=== PATIENT | female | born 1940 | race Caucasian/White ===

== ENCOUNTER → 2016-08-24 | Outpatient (CLI) | payer MEDICARE, BC ==
[~2016-08-24] MED LIST: ACTEMRA; ACTEMRA80 MG/4 ML IV; AMLODIPINE BES2.5 MG PO; BENTYL20 MG PO; CIPRO PO; DEXAMETHASONE4 MG PO; FOLIC ACID PO; HCTZ PO; HYDROCODON-ACE1 EAC9 PO; LEVOTHYROXINE100 MC1 PO; LISINOPRIL-HCTZ1 T15 PO; LISINOPRIL-HCTZ1 T21 PO; LOMOTIL WHITE2.5 M1 PO; LOTREL 5/10 MG1 CAP PO; MELOXICAM15 MG PO; METHOTREXATE2.5 MG PO; MOBIC15 MG PO; NABUMETONE PO; NORCO1 TAB 10/3 PO; ONDANSETRON ODT4 MG PO; PYRIDIUM PO; REMICADE; ZESTORETIC 20-1 EAC2
--- NOTE | ~2016-08-24 | CT57 ---
[facility] A Service of [facility] RADIOLOGY TEXT RESULTS PATIENT: KADIE CALLAWAY LOCATION: [facility] : 42 UNIT #: [id number] AGE: [address]: Socrates Menard MD SEX: F ORDER DR: [id number] [facility]. [place], [place] [address] [id number] O MR#: [id number] #: [id number] NAME: KADIE CALLAWAY. : 1940 SEX: F STUDY DATE/TIME: 08/24/2016 11:58 UNIT: [facility] ROOM: STUDY DESCRIPTION: CT Chest Wo Cont Attending Physician: Socrates Menard M.D. Referring Physician: Socrates Menard M.D. Ordering Physician: Socrates Menard M.D. Primary Care Physician: Darell Villar M.D. MEDICAL IMAGING REPORT This report is preliminary unless electronic signature is present EXAM CT chest. INDICATION Pulmonary nodule. Restaging. COPD. TECHNIQUE CT of the chest without contrast. Coronal and sagittal reconstructions were obtained. This CT exam was performed with one or more of the following radiation dose reduction techniques: automatic exposure control, adjustment of mA and/or kV according to patient size, and iterative reconstruction. COMPARISON CT chest dated 02/09/2016 and 12/02/2011. FINDINGS Several small pulmonary nodules are unchanged from the prior study of 02/09/2016. A 0.5 cm pulmonary nodule in the left lung base previously measured 0.6 cm. There is a 0.8 cm nodule in the lingula, unchanged. A dominant nodule in the right upper lobe measures 1.1 cm x 1.0 cm, unchanged. No new or enlarging nodules are identified. There is background emphysema. Central airways are patent. No enlarged mediastinal or hilar lymph nodes. No pericardial or pleural effusion. There are a few gallstones in the gallbladder. No acute osseous abnormalities. IMPRESSION [facility] A Service of [facility] RADIOLOGY TEXT RESULTS PATIENT: KADIE CALLAWAY LOCATION: [facility] : 42 UNIT #: [id number] AGE: [address]: Socrates Menard MD SEX: F ORDER DR: 1. Multiple noncalcified pulmonary nodules are unchanged from prior studies. No new or enlarging pulmonary nodules. 2. Multiple calcified granulomas in the lungs indicating prior granulomatous exposure. 3. Mild emphysema. Dictated by... Sree Scott M.D. THIS IS AN ELECTRONICALLY VERIFIED REPORT Sree Scott M.D. at 08/25/2016 9:02 AM CHEPE/jagruti TD: 08/24/2016 23:59 JOB #: [id number] MEDICAL IMAGING REPORT Page 1 of 1 COPY
== END | disposition home or self-care (01) ==
LOC: CCAT 11:09
DX: R91.1 Solitary pulmonary nodule (principal); R91.8 Other nonspecific abnormal finding of lung field; J43.9 Emphysema, unspecified; J84.10 Pulmonary fibrosis, unspecified
CPT/HCPCS: 71250

== ENCOUNTER 2016-09-29 16:04 | Inpatient (IN) | payer MEDICARE, BC ==
--- NOTE | ~2016-09-29 | DS ---
Unit #: [id number] #: [id number] Patient: KADIE MONTOYA [id number] [address] [address] [id number] I MR#: [id number] NAME: KADIE MONTOYA. ROOM: [facility] Age: 76 Sex: F Admission Date: 09/29/2016 : 1940 Discharge Date: 10/01/2016 Attending Physician: Kaylyn Reyez M.D. Primary Care Physician: Darell Villar M.D. DISCHARGE SUMMARY PRINCIPAL DIAGNOSES 1. Acute on likely chronic cholecystitis with associated cholelithiasis status post laparoscopic cholecystectomy. 2. Acute hypoxic respiratory failure secondary to atelectasis, now resolved. 3. Hypotension, likely medication induced, now off of antihypertensives. 4. Severe chronic obstructive pulmonary disease. 5. Rheumatoid arthritis. 6. Stable lung nodules. 7. Moderate protein malnutrition. 8. Hypothyroidism. 9. Acute kidney injury. 10. Tobaccoism. 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 PROCEDURES 1. Laparoscopic cholecystectomy on October 01, 2016. This occurred without complication. 2. Right upper quadrant ultrasound, on September 30, 2016, with multiple large gallstones within a nondistended, thickly walled gallbladder. 3. Chest x-ray, September 29, 2016, with lower lung volumes and vascular crowding, likely consistent with atelectasis. A well-circumscribed nodule in the right upper lobe that is stable since May 2016. CLINICAL HISTORY AND HOSPITAL COURSE Ms. Montoya is a 76-year-old female who presents to the emergency department with complaints of epigastric and right upper quadrant pain. Please refer to H and P for further details. Pain was worse after eating. In the emergency department, lab work was unremarkable. However, the patient developed some mild hypotension in addition to some hypoxia and she was subsequently admitted. In regards to patient's epigastric pain, right upper quadrant was done revealing cholelithiasis and a thickened gallbladder wall. LSA was consulted and the patient underwent laparoscopic cholecystectomy earlier today. She is still having a mild amount of pain and am I going to monitor for the next few hours to ensure pain is adequately controlled and she has no recurrent hypoxia. In regards to patient's hypotension, her home medications were healed. She was placed on IV fluids and hypotension resolved. Today, she has stable blood pressure off of her antihypertensive medications with Unit #: [id number] #: [id number] Patient: KADIE MONTOYA systolics running in the 120s to 130s. I am going to hold all of her antihypertensives upon discharge and this can be followed up in one to two weeks with her primary care provider, Dr. Villar. They can be reinitiated if needed. In regards to the patient's hypoxia, this resolved simply with deep breathing. I suspect this is secondary to atelectasis due to her gallbladder inflammation. There were concerns about questionable pneumonia but the patient did not have any cough. She did not have any fever. She had minimal leukocytosis. Again, I am going to hold antibiotics at this time and encouraged incentive spirometry. The patient's other chronic condition remained stable. She will be discharged home later today assuming she can tolerate a diet. DISCHARGE CONDITION Stable. DISCHARGE STATUS Discharged to home. DISCHARGE MEDICATIONS 1. [place] 7.5/325 mg one to two tablets p.o. q.6 hours p.r.n. for pain. Number given 30. 2. Levothyroxine 100 mcg p.o. daily. 3. Actemra 80 mg IV monthly. Please note I am holding Zestoretic, Norvasc and Mobic due to her hypotension and mild elevated creatinine. On date of discharge, creatinine is 1.5. DISCHARGE INSTRUCTIONS 1. The patient was instructed to follow a regular diet as she can tolerate. 2. She can increase her activity as tolerated. 3. To refrain from any further tobacco use. FOLLOWUP 1. The patient will follow up with Dr. Marcos in approximately two weeks. 2. The patient should follow up with Dr. Villar in one week. Remain off of antihypertensives until then and they can be re-initiated as an outpatient if needed. Time spent on discharge-34 minutes. Dictated by... Kaylyn Reyez M.D. MELVINA/chel TD: 10/03/2016 14:11 JOB #: [id number] Unit #: [id number] #: [id number] Patient: KADIE MONTOYA DISCHARGE SUMMARY Page 1 of 1 X Kaylyn Reyez MD X DISCHARGE SUMMARY
--- NOTE | ~2016-09-29 | HP ---
Unit #: [id number] #: [id number] Patient: KADIE CALLAWAY [id number] [address] [place], [place] [address] [id number] I MR#: [id number] NAME: KADIE CALLAWAY. ROOM: 82656 Age: 76 Sex: F Admission Date: 09/29/2016 : 1940 Attending Physician: Jacki Trivedi M.D. Primary Care Physician: Darell Villar M.D. HISTORY AND PHYSICAL CHIEF COMPLAINT Epigastric and chest pain. HISTORY This pleasant 77-year-old female with hypertension, hypothyroidism, rheumatoid arthritis, is admitted for chest and abdominal pain. Patient states that recently she has noted a little bit of diarrhea. However, today she developed lower chest pain/epigastric pain then nausea, vomiting, lightheadedness, feeling hot and cold chills. She denies shortness of breath, cough, does admit to some recent dysuria. She presents to this emergency department where she is afebrile. Her O2 sats dropped to about 86% with ambulation. Although she has no CVA tenderness, her urine shows significant pyuria. CT scan of the abdomen and pelvis was performed showing gallstones, and possible pneumonia versus congestive heart failure of both the lower lungs, noncalcified nodules which were unchanged. In the ER patient was bolused with a liter of saline, given 4 of Zofran, morphine, Levaquin and Phenergan. She is a bit tender in the epigastric region. PAST MEDICAL HISTORY 1. Hypertension. 2. Rheumatoid arthritis. 3. Hypothyroidism, status post thyroidectomy for benign lung nodules. 4. Lung nodules, followed by Dr. Menard. 5. COPD. 6. Total abdominal hysterectomy. 7. Bilateral cataract extraction with lens placement. ALLERGIES Penicillin and sulfa. HOME MEDICATIONS 1. Synthroid 0.1 mg daily. 2. Mobic 15 mg daily. 3. Zestoretic 20/25 daily. 4. Norvasc 2.5 mg daily. 5. Actemra 80 mg IV monthly. FAMILY HISTORY CAD. SOCIAL HISTORY The patient lives with her . She stopped smoking 07/2016, was Unit #: [id number] #: [id number] Patient: KADIE CALLAWAY smoking one pack per day or tobacco until that time, does not drink alcohol. REVIEW OF SYSTEMS Noted for upper abdominal/lower chest pain, lightheadedness, feeling feverish, cold chills, dysuria, hypertension, DJD, hypothyroidism, rheumatoid arthritis, abovementioned surgeries. All other systems were reviewed and are otherwise negative. PHYSICAL EXAMINATION GENERAL: Pleasant 76-year-old female currently in no acute distress. VITAL SIGNS: Patient is afebrile, pulse 76, respirations 20, initial blood pressure 99/33, O2 saturation 93% on 2 L or oxygen. HEENT: Pupils are irregular and unequal secondary to previous surgeries. Extraocular muscles are intact. Pharynx is benign. NECK: Supple, without adenopathy or thyromegaly. CHEST: Reveals a few crackles at the right base. BACK: Without CVA tenderness. CARDIAC: Normal S1 and S2, very soft systolic murmur. ABDOMEN: Bowel sounds are present. Mild epigastric tenderness. No hepatosplenomegaly. No masses. EXTREMITIES: Without cyanosis, clubbing or edema. Pedal pulses are somewhat diminished. NEUROLOGIC EXAM: Patient is awake, alert, oriented. Cranial nerves are intact. Equal strength throughout. DIAGNOSTIC STUDIES ADMISSION LABORATORY: Hematocrit is 42.4, normal white count and platelet count. SMA-12: Glucose 181. Normal lipase, amylase Urinalysis 3+ leukocyte esterase, 10 to 25 red cells, 50 to 100 white cells, 3+ bacteria, moderate squamous cells. IMAGING: CT scan of the abdomen and pelvis: Development of diffuse interstitial thickening of the lung bases. May be due to interstitial edema or an atypical infection. Noncalcified pulmonary nodules in the left lower lobe, unchanged from 12/2015. Gallstones. Diverticular disease. Renal atrophy. ASSESSMENT 1. Epigastric and chest pain. Will check an EKG. Obviously treat for possible pneumonia although patient has no symptoms as such, and will check a gallbladder ultrasound. 2. Questionable pneumonia on chest x-ray. Patient denies cough. 3. Gallstones. 4. Urinary tract infection. 5. Rheumatoid arthritis. 6. Chronic obstructive pulmonary disease and nodules followed by Dr. Feliberto Menard. 7. Hypertension. 8. Hypothyroidism, status post thyroidectomy. PLANS 1. Doxycycline and cefotetan pending a formal chest x-ray. Obtain gallbladder and urine culture. Patient was given a dose of Levaquin in the ER. 2. Obtain formal chest x-ray. 3. Obtain EKG, STAT cardiac enzymes. 4. SCDs for DVT prophylaxis. Unit #: [id number] #: [id number] Patient: KADIE CALLAWAY 5. IV fluids and supportive treatment. Dictated by Jacki Trivedi M.D. AML/cf TD: 09/29/2016 23:22 JOB #: [id number] HISTORY AND PHYSICAL Page 1 of 1 X Jacki Trivedi MD X HISTORY AND PHYSICAL
--- NOTE | ~2016-09-29 | CO ---
Unit #: [id number] #: [id number] Patient: KADIE MONTOYA [id number] [address] [address] [id number] I MR#: [id number] NAME: KADIE MONTOYA. ROOM: 312 Age: 76 Sex: F Admission Date: 09/29/2016 : 1940 Attending Physician: Kaylyn Reyez M.D. Primary Care Physician: Darell Villar M.D. Consultation Date: 09/30/2016 CONSULTATION REPORT HISTORY AND EXAM Ms. Montoya is a 76-year-old female with a known history of asymptomatic cholelithiasis who developed right upper quadrant and epigastric abdominal pain with associated pain in the chest. She came to the hospital and was admitted and on evaluation appears to have acute on chronic cholecystitis with cholelithiasis. Periductal systems is normal and her liver chemistries are normal. She denies any fever, chills, hematemesis, hematochezia, melena. PAST MEDICAL HISTORY 1. Hypertension. 2. Rheumatoid arthritis. 3. COPD. 4. She is status post thyroidectomy in July of this year for benign nodules. 5. She has had benign lung nodules for some time. 6. Bilateral cataract extraction. 7. Total abdominal hysterectomy. ALLERGIES Penicillin and sulfa. MEDICATIONS Reviewed. FAMILY HISTORY Unremarkable. SOCIAL HISTORY Lives at home with her . Has good family support. She stopped smoking in July of 2016. Prior to that, she was a pack per day smoker. Denies use of alcohol. REVIEW OF SYSTEMS As above. PHYSICAL EXAMINATION VITAL SIGNS: On current examination, temperature is 98, pulse 74 and regular, respirations 20, blood pressure 113/48 GENERAL: Awake, alert and oriented. HEENT: No scleral icterus. CARDIAC EXAM: Regular rhythm. LUNGS: Clear. ABDOMEN: She guards in the right upper quadrant. It is localized. There Unit #: [id number] #: [id number] Patient: KADIE MONTOYA is no rebound tenderness or mass. EXTREMITIES: No edema. NEUROLOGICAL: Grossly intact. DIAGNOSTIC STUDIES LABORATORY: Comprehensive metabolic panel is normal. Urinalysis - negative for infection. Hemoglobin 12.8, white count 14,900, 191,000 platelets. CARDIOVASCULAR: EKG - normal sinus rhythm. IMAGING: CT chest - atelectasis versus infiltrate. Ultrasound of the gallbladder - multiple large stones with a thickened gallbladder wall. Normal biliary ductal system. ASSESSMENT AND PLAN 76-year-old female with acute on chronic cholecystitis and cholelithiasis. We discussed laparoscopic cholecystectomy with possibility of conversion to open procedure. Risks, benefits, complications were gone over. Questions were answered. The patient understands and agrees to proceed. Dictated by... Naz May/brett TD: 10/01/2016 07:04 JOB #: [id number] CONSULTATION REPORT Page 1 of 1 X Arsen Raza MD X CONSULTATION REPORT
--- NOTE | ~2016-09-29 | OR ---
Unit #: [id number] #: [id number] Patient: KADIE CALLAWAY [id number] [id number] Alivia MR#: [id number] NAME: KADIE CALLAWAY. ROOM: 312 Date of Procedure: 10/01/2016 Admission Date: 09/29/2016 Surgeon: Gucci Marcos III, M.D. : 1940 Attending Physician: Kaylyn Reyez M.D. Primary Care Physician: Darell Villar M.D. OPERATIVE REPORT PREOPERATIVE DIAGNOSIS Symptomatic cholelithiasis. POSTOPERATIVE DIAGNOSIS Symptomatic cholelithiasis. PROCEDURE PERFORMED Laparoscopic cholecystectomy. ANESTHESIA General. SPECIMENS Gallbladder to pathology. COMPLICATIONS None apparent. ESTIMATED BLOOD LOSS Minimal. INDICATIONS FOR PROCEDURE This is a 76-year-old lady, who has a history of gallstones and has been having some postprandial right upper quadrant pain with nausea. She is here today for laparoscopic cholecystectomy. DESCRIPTION OF PROCEDURE After consent was obtained, the patient was brought to the operating room and placed in the supine position. General anesthetic was administered. Her abdomen was prepped and draped in standard surgical fashion. I made a 5-mm incision in the right upper quadrant and used an Optiview to enter into the peritoneal cavity without any difficulty. CO2 pneumoperitoneum was then established. Next, a second 5-mm port was placed in the supraumbilical region and an 11-mm port was placed in the midepigastric region and a third 5-mm port placed in the right lateral subcostal region. I began by retracting the gallbladder superiorly and laterally. It did appear to be distended. There were no unusual adhesions to the gallbladder itself. I was able to dissect out the cystic duct and cystic artery and after these were carefully identified, I placed 2 clips proximally and one clip distally along both structures and then they were divided. The gallbladder was then taken off the liver bed using the hook cautery. The gallbladder was then extracted through the epigastric port Unit #: [id number] #: [id number] Patient: KADIE CALLAWAY site with some minimal dilatation of the fascia. I had excellent hemostasis and all needle, sponge, and instrument counts were correct x2. I removed all the trocars and released the pneumoperitoneum. I injected all the port sites with 0.25% plain Marcaine. I reapproximated the fascia at the epigastric port site with a neoClose device. The skin edges were then reapproximated with interrupted 4-0 Vicryl subcuticular suture. Steri-Strips were then applied. The patient tolerated the procedure without any problems and returned to the recovery room in stable condition. Dictated by... Gucci Marcos III, M.D. VCL/albert TD: 10/02/2016 01:50 JOB #: [id number] OPERATIVE REPORT Page 1 of 1 X Gucci Marcos III, MD X PROCEDURE OPERATIVE NOTE
--- NOTE | ~2016-09-29 | CT4 ---
[facility] A Service of [facility] RADIOLOGY TEXT RESULTS PATIENT: KADIE CALLAWAY LOCATION: [facility] : 42 UNIT #: [id number] AGE: [address]: Amado Barger MD SEX: F ORDER DR: [id number] [facility] [address] [place], [place] [address] [id number] MR#: [id number] Acc #: [id number] NAME: KADIE CALLAWAY. : 1940 SEX: F STUDY DATE/TIME: 09/29/2016 20:36 UNIT: [facility] ROOM: STUDY DESCRIPTION: CT Abd and Pelv Wo Cont Attending Physician: Rickey Barger M.D. Ordering Physician: Rickey Bargre M.D. Primary Care Physician: Darell Villar M.D. MEDICAL IMAGING REPORT This report is preliminary unless electronic signature is present EXAM CT of the abdomen and pelvis. INDICATIONS Upper abdominal pain. Nausea and vomiting. Diarrhea. 1-day duration. TECHNIQUE CT of the abdomen and pelvis without contrast. Coronal and sagittal reconstructions were obtained. This CT exam was performed with one or more of the following radiation dose reduction techniques: automatic exposure control, adjustment of mA and/or kV according to patient size, and iterative reconstruction. COMPARISON CT abdomen and pelvis dated 01/01/2016. FINDINGS ABDOMEN: There is emphysema in the lung bases. Bronchial wall thickening can be seen in the setting of acute or chronic bronchitis. There is increased interstitial thickening in both lungs as well. This increased interstitial thickening could be due to interstitial edema or an atypical infection. There is a pulmonary nodule in the left lower lobe measuring 8 mm. This is unchanged. The noncontrast evaluation of the liver, pancreas, spleen, and adrenal glands are within normal limits. There is bilateral renal atrophy. No hydronephrosis. The gallbladder has several gallstones. No gallbladder distension. The bowel is not dilated. The abdominal aorta is diffusely atherosclerotic, there is no aneurysm. There is ectasia measuring up to 1.8 cm. There is diffuse diverticulosis of the left side of the colon. No diverticulitis. The appendix is normal. PELVIS: The bladder is unremarkable. Ovaries are within normal. The [facility] A Service of [facility] RADIOLOGY TEXT RESULTS PATIENT: KADIE CALLAWAY [id number] 42 UNIT #: [id number] AGE: [address]: Amado Barger MD SEX: F ORDER DR: uterus is surgically absent. IMPRESSION 1. Development of diffuse interstitial thickening in the lung bases. This may be due to interstitial edema or an atypical infection. Please correlate with clinical symptoms. 2. Noncalcified pulmonary nodules in the left lower lobe should be followed. These are unchanged from at least 01/01/2016. 3. Cholelithiasis. 4. Diverticulosis. 5. Renal atrophy. Dictated by... Sree Scott M.D. THIS IS AN ELECTRONICALLY VERIFIED REPORT Sree Scott M.D. at 09/29/2016 9:47 PM CHEPE/nazario TD: 09/29/2016 21:36 JOB #: [id number] MEDICAL IMAGING REPORT Page 1 of 1 COPY
--- NOTE | ~2016-09-29 | US67 ---
[facility] A Service of [facility] RADIOLOGY TEXT RESULTS PATIENT: KADIE CALLAWAY LOCATION: [facility] 312- : 42 UNIT #: [id number] AGE: [address]: Kaylyn Reyez MD SEX: F ORDER DR: [id number] [facility] [address] [place], [place] [address] [id number] I MR#: [id number] Acc #: [id number] NAME: KADIE CALLAWAY. : 1940 SEX: F STUDY DATE/TIME: 09/30/2016 10:46 UNIT: A PCU ROOM: [facility] STUDY DESCRIPTION: Gallbladder Attending Physician: Kaylyn Reyez M.D. Ordering Physician: Jacki Trivedi M.D. Primary Care Physician: Darell Villar M.D. MEDICAL IMAGING REPORT This report is preliminary unless electronic signature is present EXAM Ultrasound abdomen, limited, 09/30/2016 HISTORY 76-year-old female admitted through the ED yesterday with 1-day history of upper abdominal pain, nausea, vomiting and diarrhea. Cholelithiasis on CT examination. TECHNIQUE Dong-scale ultrasound imaging of the right upper quadrant. FINDINGS Ultrasound imaging is somewhat limited by patient body habitus and right upper quadrant bowel gas. Multiple large gallstones are present within a nondistended, diffusely thick-walled gallbladder. There is no intrahepatic or extrahepatic bile duct dilatation. Somewhat echodense hepatic parenchyma. No visible hepatic mass or other focal lesion. Pancreas is obscured by bowel gas. No free fluid in the right upper abdomen. Right kidney is negative with no hydronephrosis. IMPRESSION 1. Technically limited study as noted above. 2. Multiple large gallstones within a nondistended, mildly thick-walled gallbladder. Correlate for clinical evidence of acute cholecystitis. 3. No intrahepatic or extrahepatic bile duct dilatation. Dictated by... Socrates Hewitt M.D. THIS IS AN ELECTRONICALLY VERIFIED REPORT Socrates Hewitt M.D. at 09/30/2016 2:[address] [facility] A Service of [facility] RADIOLOGY TEXT RESULTS PATIENT: KADIE CALLAWAY LOCATION: [facility] 312-01 : 42 UNIT #: [id number] AGE: [address]: Kaylyn Reyez MD SEX: F ORDER DR: Jasmin TD: 09/30/2016 12:22 JOB #: [id number] MEDICAL IMAGING REPORT Page 1 of 1 COPY
--- NOTE | ~2016-09-29 | EKG ---
PATIENT: KADIE CALLAWAY UNIT #: [id number] Ventricular Rate: 75 BPM Atrial Rate: 75 BPM P-R Interval: 132 ms QRS Duration: 62 ms Q-T Interval: 490 ms QTC Calculation(Bezet): 547 ms Calculated R Bowman: 14 degrees Calculated T Bowman: 166 degrees Diagnosis Line: Normal sinus rhythm Diagnosis Line: Septal infarct , age undetermined Diagnosis Line: ST and T wave abnormality, consider anterior Diagnosis Line: ischemia Diagnosis Line: Prolonged QT Diagnosis Line: Abnormal ECG Diagnosis Line: No previous ECGs available Diagnosis Line: Confirmed by PALLAVI ZHANG MD ([id number]) on 09/30/2016 Diagnosis Line: 10:40:51 AM INTERPRETING MD: VICENTE ESTRELLA
--- NOTE | ~2016-09-29 | CR63 ---
[facility] A Service of [facility] & [facility] RADIOLOGY TEXT RESULTS PATIENT: KADIE CALLAWAY LOCATION: [facility] 312- : 42 UNIT #: [id number] AGE: [address]: Kaylyn Reyez MD SEX: F ORDER DR: [id number] [facility] [address] [place], [place] [address] [id number] MR#: [id number] Acc #: [id number] NAME: KADIE CALLAWAY. : 1940 SEX: F STUDY DATE/TIME: [facility] ROOM: 312 STUDY DESCRIPTION: CR Chest 2 View Attending Physician: Kaylyn Reyez M.D. Ordering Physician: Jacki Trivedi M.D. Primary Care Physician: Darell Villar M.D. MEDICAL IMAGING REPORT This report is preliminary unless electronic signature is present EXAM Chest 2 views 09/30/2016 1119 hours HISTORY 76-year-old woman with chest pain, nausea and shortness of air today. COMPARISON CT chest 08/24/2016 and chest film 06/07/2016 FINDINGS Upright AP and lateral views of the chest demonstrate mild cardiomegaly and tortuous aorta. Lung volumes are slightly low with basilar vascular crowding. There is haziness at both bases which may simply represent atelectasis although underlying pneumonia cannot be excluded. There is a pulmonary parenchymal nodule in the right upper lung corresponding to noncalcified nodule on prior CT. This is partially obscured from the attachment site of the ECG lead but is felt similar to 06/07/2016. Presence of a left effusion cannot be excluded. IMPRESSION 1. Lower lung volume film with basilar vascular crowding and patchy bibasilar densities. This could represent atelectasis. It is difficult to exclude pneumonia given this technique. Question new left effusion. 2. There is a well-circumscribed nodule in the right upper lobe partially obscured by the ECG lead attachment site likely corresponding to the noncalcified nodules seen on 06/07/2016. This is not appreciably changed. Other smaller noncalcified nodules seen on prior CT are not detectable on plain film today. Dictated by... Becky Beltran M.D. [facility] A Service of [facility] & [facility] RADIOLOGY TEXT RESULTS PATIENT: KADIE CALLAWAY LOCATION: [facility] 312-01 : 42 UNIT #: [id number] AGE: [address]: Kaylyn Reyez MD SEX: F ORDER DR: THIS IS AN ELECTRONICALLY VERIFIED REPORT Becky Beltran M.D. at 09/30/2016 2:26 PM SMM/grupo TD: 09/30/2016 11:42 JOB #: [id number] MEDICAL IMAGING REPORT Page 1 of 1 COPY
[~2016-09-29 16:04] MED LIST changes: -HYDROCODON-ACE1 EAC9 PO; -LEVOTHYROXINE100 MC1 PO; -MOBIC15 MG PO; -ZESTORETIC 20-1 EAC2
[2016-09-29 17:02] LABS: BASOPHIL% 0.1 % (0-2.5); EOSINOPHIL% 0.5 % (0.0-7.0); HEMATOCRIT 42.4 % (35.0-45.0); LYMPHOCYTE# 0.1 X10e3 (1.0-3.5); LYMPHOCYTE% 1.4 % (17.0-45.0); MEAN CELL VOLUME 87.6 FL (83-96); MEAN CORPUSCULAR HEMOGLOBIN 28.9 PG (28-34); MEAN PLATELET VOLUME 7.6 FL (6.5-11.5); NEUTROPHIL# 3.9 X10e3 (1.5-7.1); PLATELET COUNT 206 X10e3 (140-420); RED BLOOD COUNT 4.84 X10e (3.90-5.30); RED CELL DISTRIBUTION WIDTH 12.8 % (11.0-15.5)
[2016-09-29 17:09] LABS: DIFF IND NO
[2016-09-29 17:28] LABS: ALBUMIN SERUM 3.5 g/dL (3.5-5.0); BILIRUBIN, DIRECT 0.1 mg/dL (0.0-0.2); BILIRUBIN,INDIRECT 0.5 mg/dL (0.0-0.9); BILIRUBIN,TOTAL 0.6 mg/dL (0.2-2.0); CALCIUM SERUM 9.3 mg/dL (8.4-10.2); GLOM FILT RATE Estimated 55.5 mL/min (>60); POTASSIUM 3.8 mmol/L (3.5-5.1)
[2016-09-29 21:06] LABS: URINE SOURCE CLEAN CATCH
[2016-09-29 21:13] LABS: URINE APPEARANCE CLOUDY; URINE BILIRUBIN NEG (NEG); URINE BLOOD TRACE (NEG); URINE COLOR DK YELLOW; URINE GLUCOSE NEG (NEG); URINE KETONE NEG (NEG); URINE LEUKOCYTE ESTERASE 3+ (NEG); URINE NITRATE NEG (NEG); URINE PROTEIN TRACE (NEG); URINE SPECIFIC GRAVITY 1.019 (1.003-1.035)
[2016-09-29 21:16] LABS: CULTURE INDICATED? YES; URINE BACTERIA AUWI 3+ (NEGATIVE); URINE SQUAMOUS EPITHELIAL CELL MOD /[HPF]; UWBCS1 AUWI 50-100 (0-5)
[2016-09-29 21:26] LABS: U HYALINE CASTS AUWI 0-2 /[LPF]
[2016-09-29] MEDS ORDERED: MOBIC15 MG PO (22:15)
[2016-09-29] MEDS ORDERED: LEVOTHYROXINE100 MC1 PO (22:15)
[2016-09-29] MEDS ORDERED: ZESTORETIC 20-1 EAC2 (22:16)
[2016-09-29] MEDS ORDERED: AMLODIPINE BES2.5 MG PO (22:16)
[2016-09-29] MEDS ORDERED: ACTEMRA80 MG/4 ML IV (22:17)
[2016-09-29 23:50] LABS: POC - CKMB <1.0 ng/mL (0.0-7.9); POC - TROPONIN <0.05 ng/mL (<=0.05)
[2016-09-30 01:40] LABS: CK TOTAL 27 IU/L (26-140)
[2016-09-30 06:31] LABS: BASOPHIL% 0.2 % (0-2.5); EOSINOPHIL# 0.1 X10e3 (0-0.7); EOSINOPHIL% 0.4 % (0.0-7.0); HEMOGLOBIN 12.8 gm/dL (12.0-16.0); LYMPHOCYTE# 0.2 X10e3 (1.0-3.5); LYMPHOCYTE% 1.3 % (17.0-45.0); MEAN CELL VOLUME 89.5 FL (83-96); MEAN CORPUSCULAR HEMOGLOBIN 28.7 PG (28-34); MEAN CORPUSCULAR HGB CONC 32.1 g/dL (30-36); MEAN PLATELET VOLUME 7.9 FL (6.5-11.5); MONOCYTE# 0.6 X10e3 (0-1.0); MONOCYTE% 3.9 % (3.0-12.0); NEUTROPHIL% 94.2 % (40-75); PLATELET COUNT 191 X10e3 (140-420); RED BLOOD COUNT 4.47 X10e (3.90-5.30)
[2016-09-30 06:40] LABS: DIFF IND NO; WHITE BLOOD COUNT 14.9 X10e3 (4.0-10.5)
[2016-09-30 07:12] LABS: CK TOTAL 22 IU/L (26-140)
[2016-09-30 07:14] LABS: ALBUMIN SERUM 2.7 g/dL (3.5-5.0); BILIRUBIN,TOTAL 0.7 mg/dL (0.2-2.0); BUN/CREATININE RATIO 18.46; CALCIUM SERUM 8.4 mg/dL (8.4-10.2); CREATININE SERUM 1.3 mg/dL (0.6-1.4); GLOM FILT RATE Estimated 40.4 mL/min (>60); POTASSIUM 4.8 mmol/L (3.5-5.1); PROTEIN TOTAL SERUM 5.1 g/dL (6.0-8.3)
[2016-09-30 11:48] LABS: CK TOTAL 28 IU/L (26-140)
[2016-10-01 05:46] LABS: HEMATOCRIT 41.2 % (35.0-45.0); HEMOGLOBIN 13.7 gm/dL (12.0-16.0); MEAN CELL VOLUME 87.9 FL (83-96); MEAN CORPUSCULAR HEMOGLOBIN 29.3 PG (28-34); MEAN CORPUSCULAR HGB CONC 33.3 g/dL (30-36); MEAN PLATELET VOLUME 7.8 FL (6.5-11.5); RED BLOOD COUNT 4.69 X10e (3.90-5.30); RED CELL DISTRIBUTION WIDTH 13.1 % (11.0-15.5); WHITE BLOOD COUNT 8.5 X10e3 (4.0-10.5)
[2016-10-01 06:43] LABS: ALBUMIN SERUM 2.7 g/dL (3.5-5.0); BILIRUBIN,TOTAL 0.1 mg/dL (0.2-2.0); CALCIUM SERUM 8.8 mg/dL (8.4-10.2); CREATININE SERUM 1.5 mg/dL (0.6-1.4); POTASSIUM 4.4 mmol/L (3.5-5.1); PROTEIN TOTAL SERUM 5.4 g/dL (6.0-8.3)
[2016-10-01] MEDS ORDERED: HYDROCODON-ACE1 EAC9 PO (15:41)
== END 2016-10-01 16:41 | disposition home or self-care (01) | DRG 417 ==
LOC: CED 16:04 → CEDOF 23:10 → C3A PCU 23:15 → CEDOF 09-30 08:50 → C3A PCU 09-30 11:33
PROVIDERS: Internal Medicine; Surgery
PROC: 0FT44ZZ Resection of Gallbladder, Percutaneous Endoscopic Approach (ICD-10-PCS; principal; 2016-10-01 09:00)
DX: K80.12 Calculus of gallbladder with acute and chronic cholecystitis without obstruction (principal); J96.01 Acute respiratory failure with hypoxia; N17.9 Acute kidney failure, unspecified; E44.0 Moderate protein-calorie malnutrition; J98.11 Atelectasis; N39.0 Urinary tract infection, site not specified; E89.0 Postprocedural hypothyroidism; I10 Essential (primary) hypertension; Z87.891 Personal history of nicotine dependence; I95.2 Hypotension due to drugs; J44.9 Chronic obstructive pulmonary disease, unspecified; M06.9 Rheumatoid arthritis, unspecified; R91.1 Solitary pulmonary nodule; Z98.42 Cataract extraction status, left eye; Z98.41 Cataract extraction status, right eye; Z96.1 Presence of intraocular lens; Z90.710 Acquired absence of both cervix and uterus; Z88.0 Allergy status to penicillin; Z88.2 Allergy status to sulfonamides; T46.1X5A Adverse effect of calcium-channel blockers, initial encounter; T50.2X5A Adverse effect of carbonic-anhydrase inhibitors, benzothiadiazides and other diuretics, initial encounter
CPT/HCPCS: 36415; 71020; 74176; 76705; 80048; 80053; 80076; 81003; 82150; 82550; 82553; 82947; 83690; 83880; 84484; 85025; 85027; 87086; 88304; 93005; 94640; 94760; 96361; 96374; 96375; 99285; J0330; J0360; J1100; J2270; J2405; J2710; J3010